=== PATIENT | female | born 1955 | race Caucasian/White ===

== ENCOUNTER 2017-11-26 20:35 | Outpatient (REF) | payer MEDICARE, SELFPAY ==
[2017-11-26 22:04] LABS: Vitamin B12 200 pg/mL (193-986)
[2017-11-26 22:22] LABS: Anion Gap 10.5 mmol/L (3-11); BUN 15 mg/dL (7-18); CO2 25.5 mmol/L (21.0-32.0); Calcium 9.4 mg/dL (8.5-10.1); Chloride 103 mmol/L (98-107); Glucose 160 mg/dL (70-100); Potassium 3.9 mmol/L (3.5-5.1); Sodium 139 mmol/L (136-145)
== END 2017-11-26 20:55 ==
LOC: NCHCN 20:35
PROVIDERS: PCP Nurse Practitioner Family; Visit Provider Nurse Practitioner Family
DX: E11.9 Type 2 diabetes mellitus without complications (principal); I10 Essential (primary) hypertension
CPT/HCPCS: 80048; 82607

== ENCOUNTER 2018-11-11 10:40 | Outpatient (REF) | payer MEDICARE, SELFPAY ==
[2018-11-11 22:25] LABS: Anion Gap 8.6 mmol/L (3-11); BUN 13 mg/dL (7-18); CO2 25.4 mmol/L (21.0-32.0); CREATININE 0.69 mg/dL (0.55-1.02); Calcium 9.1 mg/dL (8.5-10.1); Chloride 105 mmol/L (98-107); Glucose 166 mg/dL (70-100); Hemoglobin A1C 7.3 % (4.5-6.2); Potassium 4.2 mmol/L (3.5-5.1); Sodium 139 mmol/L (136-145)
== END 2018-11-11 11:00 ==
LOC: NCHCN 10:40
PROVIDERS: PCP Nurse Practitioner Family; Visit Provider Nurse Practitioner Family
DX: E11.9 Type 2 diabetes mellitus without complications (principal); I10 Essential (primary) hypertension
CPT/HCPCS: 80048; 83036

== ENCOUNTER 2019-08-11 22:25 | Outpatient (REF) | payer MEDICARE, SELFPAY ==
[2019-08-11 21:48] LABS: Hemoglobin A1C 7.5 % (3.8-5.6)
== END 2019-08-11 22:45 ==
LOC: NCHCN 22:25
PROVIDERS: PCP Nurse Practitioner Family; Visit Provider Nurse Practitioner Family
DX: E11.9 Type 2 diabetes mellitus without complications (principal)
CPT/HCPCS: 83036

== ENCOUNTER 2019-11-11 09:04 | Outpatient (REF) | payer MEDICARE, SELFPAY ==
[2019-11-11 22:28] LABS: COMMENT (LAB VIEW ONLY) 28.81 mg/dL
[2019-11-11 22:50] LABS: Anion Gap 7.9 mmol/L (3-11); BUN 15 mg/dL (7-18); CO2 27.1 mmol/L (21.0-32.0); CREATININE 0.66 mg/dL (0.55-1.02); Calcium 9.8 mg/dL (8.5-10.1); Chloride 103 mmol/L (98-107); Glucose 150 mg/dL (74-106); Magnesium 1.7 mg/dL (1.8-2.4); Sodium 138 mmol/L (136-145); Vitamin B12 694 pg/mL (193-986)
== END 2019-11-11 09:24 ==
LOC: NCHCN 09:04
PROVIDERS: PCP Nurse Practitioner Family; Visit Provider Nurse Practitioner Family
DX: E11.9 Type 2 diabetes mellitus without complications (principal); I10 Essential (primary) hypertension; G44.209 Tension-type headache, unspecified, not intractable; H81.10 Benign paroxysmal vertigo, unspecified ear; Z51.81 Encounter for therapeutic drug level monitoring; M54.2 Cervicalgia
CPT/HCPCS: 80048; 82043; 82570; 82607; 83735

== ENCOUNTER 2020-01-26 22:08 | Outpatient (REF) | payer MEDICARE, SELFPAY | END 2020-01-26 22:28 | LOC: NCHCN 22:08 | PROVIDERS: PCP Nurse Practitioner Family; Visit Provider Internal Medicine | DX: R30.0 Dysuria (principal) | CPT/HCPCS: 87086 ==

== ENCOUNTER 2020-08-10 09:50 | Outpatient (REF) | payer MEDICARE, SELFPAY ==
[2020-08-10 14:28] LABS: HCT 36.6 % (36.0-46.0); HGB 11.7 g/dL (11.2-15.7); MCV 90.6 fL (80-95); MPV 10.3 fL (8.0-11.0); Platelet Count 340 10^3/uL (130-400); RBC 4.04 10^6/uL (3.93-5.22); RDW-SD 46.5 fL; WBC 7.12 10^3/uL (4.4-10.8)
[2020-08-10 14:51] LABS: Hemoglobin A1C 7.3 % (<5.7)
[2020-08-10 15:27] LABS: ALT 28 U/L (14-59); AST 10 U/L (15-37); Albumin 3.7 g/dL (3.4-5.0); Alkaline Phosphatase 49 U/L (46-116); Anion Gap 8.3 mmol/L (3-11); BUN 15 mg/dL (7-18); Bilirubin, Total 0.4 mg/dL (0.2-1.0); CO2 26.7 mmol/L (21.0-32.0); CREATININE 0.6 mg/dL (0.55-1.02); Calcium 9.6 mg/dL (8.5-10.1); Calculated LDL 91 mg/dL (<100); Chloride 104 mmol/L (98-107); Cholesterol 160 mg/dL (<200); Glucose 140 mg/dL (74-106); HDL Cholesterol 60 mg/dL (40-60); Magnesium 1.6 mg/dL (1.8-2.4); Potassium 4.3 mmol/L (3.5-5.1); Sodium 139 mmol/L (136-145); Total Protein 8.4 g/dL (6.4-8.2); Triglyceride 49 mg/dL (<150); Vitamin B12 606 pg/mL (193-986)
== END 2020-08-10 09:51 | disposition home or self-care (01) ==
LOC: NCHCN 09:50
PROVIDERS: PCP Nurse Practitioner Family; Visit Provider Nurse Practitioner Family
DX: E11.9 Type 2 diabetes mellitus without complications (principal); I10 Essential (primary) hypertension; E78.00 Pure hypercholesterolemia, unspecified; K21.9 Gastro-esophageal reflux disease without esophagitis; R53.83 Other fatigue; Z79.899 Other long term (current) drug therapy
CPT/HCPCS: 80053; 80061; 85027; 82607; 83036; 83735

== ENCOUNTER 2021-02-02 15:05 | Outpatient (REF) | payer MEDICARE, SELFPAY ==
[2021-02-02 14:46] LABS: COMMENT (LAB VIEW ONLY) 65.14 mg/dL; Microalb ug/mg Crea 8.3 ug/mg Cr
== END 2021-02-02 15:06 | disposition home or self-care (01) ==
LOC: NCHCN 15:05
PROVIDERS: PCP Nurse Practitioner Family; Visit Provider Nurse Practitioner Family
DX: E11.9 Type 2 diabetes mellitus without complications (principal)
CPT/HCPCS: 82043; 82570

== ENCOUNTER 2021-02-07 14:28 | Outpatient (REF) | payer MEDICARE, SELFPAY ==
[2021-02-07 22:15] LABS: HCT 38.8 % (36.0-46.0); HGB 12.3 g/dL (11.2-15.7); MCH 28.7 pg (27.0-33.0); MCHC 31.7 % (32.0-36.0); MCV 90.4 fL (80-95); Platelet Count 385 10^3/uL (130-400); RBC 4.29 10^6/uL (3.93-5.22); RDW 14.5 % (11.7-14.6); RDW-SD 48.5 fL; WBC 7.42 10^3/uL (4.4-10.8)
[2021-02-07 22:53] LABS: ALT 27 U/L (14-59); AST 14 U/L (15-37); Albumin 3.9 g/dL (3.4-5.0); Alkaline Phosphatase 53 U/L (46-116); Anion Gap 4.1 mmol/L (3-11); BUN 16 mg/dL (7-18); Bilirubin, Total 0.4 mg/dL (0.2-1.0); CO2 28.9 mmol/L (21.0-32.0); CREATININE 0.7 mg/dL (0.55-1.02); Calcium 9.6 mg/dL (8.5-10.1); Chloride 102 mmol/L (98-107); Glucose 108 mg/dL (74-106); Magnesium 1.7 mg/dL (1.8-2.4); Potassium 3.8 mmol/L (3.5-5.1); Sodium 135 mmol/L (136-145); Total Protein 8.4 g/dL (6.4-8.2); Vitamin B12 666 pg/mL (193-986)
[2021-02-07 23:09] LABS: Lipase 66 U/L (73-393)
== END 2021-02-07 14:29 | disposition home or self-care (01) ==
LOC: NCHCN 14:28
PROVIDERS: PCP Nurse Practitioner Family; Visit Provider Nurse Practitioner Family
DX: I10 Essential (primary) hypertension (principal); E11.9 Type 2 diabetes mellitus without complications; R10.2 Pelvic and perineal pain; R68.81 Early satiety
CPT/HCPCS: 80053; 83690; 85027; 82607; 83735; 84181

== ENCOUNTER 2021-11-17 19:27 | Outpatient (REF) | payer MEDICARE, SELFPAY ==
[2021-11-17 15:47] LABS: Anion Gap 6.4 mmol/L (3-11); BUN 14 mg/dL (7-18); CO2 28.6 mmol/L (21.0-32.0); CREATININE 0.7 mg/dL (0.55-1.02); Calcium 9.9 mg/dL (8.5-10.1); Chloride 103 mmol/L (98-107); Estimated GFR 94.15 (mL/min/1.73m2); Glucose 139 mg/dL (74-106); Magnesium 1.7 mg/dL (1.8-2.4); Potassium 4.3 mmol/L (3.5-5.1); Sodium 138 mmol/L (136-145); TSH (W/Ref FT4) 3.57 uIU/mL (0.36-3.74)
== END 2021-11-17 19:28 | disposition home or self-care (01) ==
LOC: NCHCN 19:27
PROVIDERS: PCP Nurse Practitioner Family; Visit Provider Nurse Practitioner Family
DX: E11.9 Type 2 diabetes mellitus without complications (principal); E83.42 Hypomagnesemia; I10 Essential (primary) hypertension; Z86.39 Personal history of other endocrine, nutritional and metabolic disease
CPT/HCPCS: 80048; 83036; 83735; 84443

== ENCOUNTER 2022-03-13 09:33 | Outpatient (REF) | payer MEDICARE, SELFPAY ==
--- OUTSIDE RECORDS SUMMARY | 2022-03-13 09:37 | XMS_ITS | CCD ---
:1955 Author Care Team Providers Name Role Phone DARRYN ELLIOTT Attending Physician Unavailable Vital Signs Unknown or Not Available. Allergies Allergy Code Allergy Type Reaction Status CIPRO RENAL FAILURE {Clinical monitoring 0 Drug allergy Active unavailable} MOTRIN RENAL FAILURE {Clinical monitoring 0 Drug allergy Active unavailable} FLAGYL {Deactivated Allergy} [id number] Drug allergy Hives Active Procedures Unknown or Not Available. History of Immunizations Immunization Code Date Influenza, seasonal, injectable, preservative free 140 12/17/2009 Problems Unknown or Not Available. Results Unknown or Not Available. Active Medications Unknown or Not Available. Medications Administered During Visit Unknown or Not Available. Encounters Encounter Diagnosis Diagnosis Code Start Date Leiomyoma of uterus, unspecified [id number] Social History Smoking Status Code Start Date End Date Former smoker [id number] Patient Decision Aids Unknown or Not Available. Discharge Instructions You were admitted to [facility] on 06/02/2021 12:52 with a principal diagnosis of Leiomyoma of uterus, unspecified You were discharged from [facility] on 06/02/2021 12:52 Should you have any questions prior to d ischarge, please contact a member of your healthcare team. If you have left the ho spital and have any questions, please contact your primary care physician. Chief Complaint and Reason For Visit Chief Complaint Date of Onset ENDOMETRIUM THICKENED Function Status Unknown or Not Available. Plan of Care Unknown or Not Available. Referral/Transition of Care Unknown or Not Available.
--- OUTSIDE RECORDS SUMMARY | 2022-03-13 09:37 | XMS_ITS | CCD ---
[...] Encounters Encounter Diagnosis Diagnosis Code Start Date Generalized abdominal pain [id number] 02/24/2021 Social History Smoking Status Code Start Date End Date Former smoker [id number] Patient Decision Aids Unknown or Not Available. Discharge Instructions You were admitted to [facility] on 02/24/2021 08:45 with a principal diagnosis of Generalized abdominal pain You were discharged from [facility] on 02/24/2021 08:45 Should you have any questions prior to d ischarge, please contact a member of your healthcare team. If you have left the ho spital and have any questions, please contact your primary care physician. Chief Complaint and Reason For Visit Chief Complaint Date of Onset ABD PAIN PELVIC PAIN Function Status Unknown or Not Available. Plan of Care Unknown or Not Available. Referral/Transition of Care Unknown or Not Available.
[2022-03-13 17:58] LABS: COMMENT (LAB VIEW ONLY) 56.46 mg/dL; Microalb ug/mg Crea 7.1 ug/mg Cr
== END 2022-03-13 09:34 | disposition home or self-care (01) ==
LOC: NCHCN 09:33
PROVIDERS: PCP Nurse Practitioner Family; Visit Provider Nurse Practitioner Family
DX: E11.9 Type 2 diabetes mellitus without complications (principal); I10 Essential (primary) hypertension
CPT/HCPCS: 82043; 82570

== ENCOUNTER 2023-02-26 16:11 | Outpatient (REF) | payer MEDICARE, SELFPAY, MEDICAID ==
[2023-02-26 21:36] LABS: COMMENT (LAB VIEW ONLY) 97.41 mg/dL; Microalb ug/mg Crea 7.1 ug/mg Cr
== END 2023-02-26 16:12 | disposition home or self-care (01) ==
LOC: NCHCN 16:11
PROVIDERS: PCP Nurse Practitioner Family; Visit Provider Nurse Practitioner Family
DX: E11.9 Type 2 diabetes mellitus without complications (principal)
CPT/HCPCS: 82043; 82570

== ENCOUNTER 2023-08-21 11:16 | Outpatient (REF) | payer OTHER, MEDICAID, SELFPAY ==
[2023-08-21 15:43] LABS: HGB 11.8 g/dL (11.2-15.7); MCH 29.4 pg (27.0-33.0); MCHC 31.9 % (32.0-36.0); MCV 92 fL (80-95); MPV 9.7 fL (8.0-11.0); Platelet Count 435 10^3/uL (130-400); RBC 4.02 10^6/uL (3.93-5.22); RDW 14.5 % (11.7-14.6); RDW-SD 49.2 fL
[2023-08-21 15:54] LABS: Anion Gap 7.8 mmol/L (3-11); BUN 19 mg/dL (7-18); CO2 25.2 mmol/L (21.0-32.0); CREATININE 0.7 mg/dL (0.55-1.02); Calcium 9.6 mg/dL (8.5-10.1); Chloride 105 mmol/L (98-107); Estimated GFR 93.56 (mL/min/1.73m2); Glucose 187 mg/dL (74-106); HDL Cholesterol 75 mg/dL (40-60); Potassium 4.5 mmol/L (3.5-5.1); Sodium 138 mmol/L (136-145); Triglyceride 61 mg/dL (<150)
[2023-08-21 16:44] LABS: Calculated LDL 79 mg/dL (<100); Cholesterol 166 mg/dL (<200)
[2023-08-21 16:52] LABS: Hemoglobin A1C 7.2 % (<5.7)
== END 2023-08-21 11:17 | disposition home or self-care (01) ==
LOC: NCHCN 11:16
PROVIDERS: PCP Nurse Practitioner Family; Visit Provider Nurse Practitioner Family
DX: E11.9 Type 2 diabetes mellitus without complications (principal); E78.00 Pure hypercholesterolemia, unspecified; E66.9 Obesity, unspecified
CPT/HCPCS: 80048; 80061; 85027; 83036

== ENCOUNTER 2024-05-12 16:11 | Outpatient (REF) | payer MEDICARE, MEDICAID, SELFPAY ==
[2024-05-12 22:33] LABS: COMMENT (LAB VIEW ONLY) 91.48 mg/dL; Microalb ug/mg Crea 10.9 ug/mg Cr
== END 2024-05-12 16:12 | disposition home or self-care (01) ==
LOC: NCHCN 16:11
PROVIDERS: PCP Nurse Practitioner Family; Visit Provider Nurse Practitioner Family
DX: E11.9 Type 2 diabetes mellitus without complications (principal)
CPT/HCPCS: 82043; 82570

== ENCOUNTER 2024-12-17 14:47 | Outpatient (REF) | payer MEDICARE, MEDICAID, SELFPAY ==
[2024-12-17 16:36] LABS: Anion Gap 8.2 mmol/L (3-11); BUN 16 mg/dL (7-18); CO2 26.8 mmol/L (21.0-32.0); Calcium 9.4 mg/dL (8.5-10.1); Chloride 100 mmol/L (98-107); Estimated GFR 78.72 (mL/min/1.73m2); Glucose 168 mg/dL (74-106); Potassium 4.0 mmol/L (3.5-5.1); Sodium 135 mmol/L (136-145)
[2024-12-17 17:00] LABS: Hemoglobin A1C 7.5 % (<5.7)
[2024-12-18 19:44] LABS: Hepatitis C Ab w Rflx HCV PCR Negative (Negative)
== END 2024-12-17 14:48 | disposition home or self-care (01) ==
LOC: NCHCN 14:47
PROVIDERS: PCP Nurse Practitioner Family; Visit Provider Nurse Practitioner Family
DX: E11.9 Type 2 diabetes mellitus without complications (principal); Z11.59 Encounter for screening for other viral diseases
CPT/HCPCS: 80048; 86803; 83036

== ENCOUNTER 2024-12-23 09:43 | Outpatient (REF) | payer MEDICARE, MEDICAID, SELFPAY ==
[2024-12-23 15:40] LABS: HCT 37.4 % (36.0-46.0); HGB 12.0 g/dL (11.2-15.7); MCH 29.6 pg (27.0-33.0); MCHC 32.1 % (32.0-36.0); MCV 92 fL (80-95); MPV 9.4 fL (8.0-11.0); Platelet Count 387 10^3/uL (130-400); RBC 4.05 10^6/uL (3.93-5.22); RDW 13.7 % (11.7-14.6); RDW-SD 46.9 fL; WBC 6.24 10^3/uL (4.4-10.8)
[2024-12-23 16:31] LABS: TSH 2.06 uIU/mL (0.36-3.74); Vitamin B12 815 pg/mL (193-986); Vitamin D 25 Total 55 ng/mL (30-100)
== END 2024-12-23 09:44 | disposition home or self-care (01) ==
LOC: NCHCN 09:43
PROVIDERS: PCP Nurse Practitioner Family; Visit Provider Nurse Practitioner Family
DX: E53.9 Vitamin B deficiency, unspecified (principal); E55.9 Vitamin D deficiency, unspecified; I10 Essential (primary) hypertension; R53.83 Other fatigue
CPT/HCPCS: 82306; 85027; 82607; 84443